=== PATIENT | female | born 1990 | race Caucasian/White ===

== ENCOUNTER 2019-02-05 03:39 | Inpatient (IN) | payer OTHER ==
[~2019-02-05 03:39] MED LIST: Bupivacaine 0.25% 10 ML SDV ONE; ePHEDrine 50 MG/ML SDV ONE
[2019-02-05] MEDS ORDERED: Ondansetron 4 MG/2 ML SDV IVPUSH PRN (04:19)
[2019-02-05] MEDS ORDERED: Calcium Carbonate 500 MG Tab.Chew PO PRN (04:19)
[2019-02-05] MEDS ORDERED: Nalbuphine 10 MG/1 ML Vial IVPUSH PRN (04:19)
[2019-02-05] MEDS ORDERED: Lidocaine 1% 50 ML MDV INJECT ONE (04:19)
[2019-02-05] MEDS ORDERED: Sodium Chloride 0.9% 10 ML Syringe FLUSH PRN (04:19)
[2019-02-05] MEDS ORDERED: Oxytocin/Lactated Ringers 10 UNIT/1,000 ML BAG IV SCH ×2 (04:30→11:15)
[2019-02-05] MEDS: Lactated Ringers 1,000 ML IV SCH ×3 (06:08→08:06)
[2019-02-05] MEDS ORDERED: fentaNYL 100 MCG/2 ML SDV EPIDUR PRN (06:35)
[2019-02-05] MEDS ORDERED: fentaNYL/Bupivacaine/NS 2 MCG-0.125% 250 ML EPIDUR PRN (06:35)
[2019-02-05] MEDS ORDERED: ePHEDrine 50 MG/ML SDV IVPUSH PRN (06:35)
[2019-02-05] MEDS ORDERED: diphenhydrAMINE 50 MG/ML SDV IVPUSH PRN (06:35)
--- NOTE | 2019-02-05 06:36 | PCM.LDHP ---
L&D History of Present Illness - General Date of Service: 02/05/19 Admit Problem/Dx: Patient Status Order with Admit Dx/Problem 02/05/19 03:50 Patient Status [ADT] Routine 02/05/19 04:19 Patient Status [ADT] Routine Admission Diagnosis/Problem Admission Diagnosis/Problem Active labor Source of Information: Patient History Limitations: Reports: No Limitations - History of Present Illness Introduction:: Patient is a 28-year-old at 39 and 07 weeks who presents with SROM and labor. Contractions and rupture happened early this morning. Contractions are moderately painful. 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 Para: 1 LMP (Approximate): Social & Family History - Family History Family Medical History: Noncontributory - Tobacco Use Smoking Status *Q: Former Smoker Years of Tobacco use: 8 Packs/Tins Daily: 0.5 Used Tobacco, but Quit: Yes Month/Year Tobacco Last Used: 01/2018 Second Hand Smoke Exposure: Yes - Alcohol Use Alcohol Use History: No - Recreational Drug Use Recreational Drug Use: No H&P Review of Systems - Review of Systems: Review Of Systems: See Below General: Reports: No Symptoms Pulmonary: Reports: No Symptoms Cardiovascular: Reports: No Symptoms Gastrointestinal: Reports: No Symptoms Genitourinary: Reports: No Symptoms Musculoskeletal: Reports: No Symptoms Psychiatric: Reports: No Symptoms Neurological: Reports: No Symptoms L&D Exam - Exam Exam: See Below - Vital Signs Vital Signs: Last Vital Signs Temp 36.1 C 02/05/19 03:50 Pulse 88 02/05/19 03:50 Resp 16 02/05/19 03:50 BP 120/75 02/05/19 03:50 Pulse Ox 98 02/05/19 03:50 Weight: 76.113 kg - OB Specific Contraction Intensity: Moderate Movement: Active Heart Tones: Present Heart Tones per Min: 140 Heart Rate (FHR) Variability: Moderate (6-25 bmp) Presentation: Vertex - Hansen Score Hansen Score Cervix Position: Midposition Hansen Score Consistency: Soft Hansen Score Effacement: >80% Hansen Score Dilation: > 5 cm Hansen Score Infant's Station: -1 ,0 Hansen Score Total: 11 - Exam General: Alert, Oriented, Cooperative Lungs: Clear to Auscultation, Normal Respiratory Effort Cardiovascular: Regular Rate, Regular Rhythm GI/Abdominal Exam: Soft, Non-Tender Genitourinary: Normal external exam Extremities: Normal Inspection Skin: Warm, Dry, Intact - Patient Data Lab Results Last 24 hrs: Laboratory Results - last 24 hr 02/05/19 02/05/19 Range/Units 04:00 04:35 WBC 13.38 H (3.98-10.04) K/mm3 RBC 3.73 L (3.98-5.22) M/mm3 Hgb 10.5 L (11.2-15.7) gm/dl Hct 32.5 L (34.1-44.9) % MCV 87.1 (79.4-94.8) fl MCH 28.2 (25.6-32.2) pg MCHC 32.3 (32.2-35.5) g/dl RDW Std Deviation 38.9 (36.4-46.3) fL Plt Count 285 (182-369) K/mm3 MPV 9.5 (9.4-12.3) fl Neut % (Auto) 76.3 H (34.0-71.1) % Lymph % (Auto) 13.8 L (19.3-51.7) % [place] % (Auto) 7.5 (4.7-12.5) % Eos % (Auto) 1.2 (0.7-5.8) Baso % (Auto) 0.1 (0.1-1.2) % Neut # (Auto) 10.21 H (1.56-6.13) K/mm3 Lymph # (Auto) 1.84 (1.18-3.74) K/mm3 [place] # (Auto) 1.00 H (0.24-0.36) K/mm3 Eos # (Auto) 0.16 (0.04-0.36) K/mm3 Baso # (Auto) 0.02 (0.01-0.08) K/mm3 Manual Slide Review Normal smear Membrane Rupture Positive H Result Diagrams: 02/05/19 04:35 - Problem List (1) 39 weeks gestation of SNOMED Code(s): 17541373 ICD Code: Z3A.39 - 39 WEEKS GESTATION OF Status: Acute Current Visit: Yes (2) Normal labor SNOMED Code(s): 47280599 ICD Code: O80 - ENCOUNTER FOR FULL-TERM UNCOMPLICATED DELIVERY; Z37.9 - OUTCOME OF DELIVERY, UNSPECIFIED Status: Acute Current Visit: Yes Problem List Initiated/Reviewed/Updated: Yes Orders Last 24hrs: Active Orders 24 hr Category Date Time Status Patient Status [ADT] Routine ADT 02/05/19 04:19 Active Activity as Tolerated [RC] PFP Care 02/05/19 04:19 Active Communication Order [RC] ASDIRECTED Care 02/05/19 04:19 Active Communication Order [RC] ASDIRECTED Care 02/05/19 06:35 Active Cooling Warming Measures [RC] ASDIRECTED Care 02/05/19 06:35 Active Notify Provider [RC] ASDIRECTED Care 02/05/19 06:35 Active Notify Provider [RC] PFP Care 02/05/19 04:19 Active Notify Provider [RC] PRN Care 02/05/19 04:19 Active Oxygen Therapy [RC] ASDIRECTED Care 02/05/19 06:35 Active Peripheral IV Care [RC] Q2HR Care 02/05/19 04:19 Active Pulse Oximetry [RC] ASDIRECTED Care 02/05/19 06:35 Active Pump Management, Intrathecal [RC] ASDIRECTED Care 02/05/19 04:21 Active Urinary Catheter Assessment [RC] ASDIRECTED Care 02/05/19 04:19 Active Vital Signs [RC] Q1H Care 02/05/19 06:35 Active Regular Diet [DIET] Diet 02/05/19 Breakfast Active RAPID PLASMA REAGIN,RPR [CHEM] Stat Lab 02/05/19 04:35 Received TYPE AND SCREEN [BBK] Stat Lab 02/05/19 04:35 Received Bupivicaine/fentaNYL/NS [fentaNYL/Bupivacaine/NS 2 MCG- Med 02/05/19 06:35 Ordered 0.125% 250 ML] 2 mcg EPIDUR CONTINUOUS PRN Calcium Carbonate [Tums] Med 02/05/19 04:19 Active 1,000 mg PO Q2H PRN Lactated Ringers [Ringers, Lactated] 1,000 ml Med 02/05/19 04:30 Active IV ASDIRECTED Nalbuphine [Nubain] Med 02/05/19 04:19 Active 10 mg IVPUSH Q2H PRN Ondansetron [Zofran] Med 02/05/19 04:19 Active 4 mg IVPUSH Q4H PRN Oxytocin/Lactated Ringers [Pitocin in LR 10 Units/1,000 Med 02/05/19 04:30 Active ML] 10 unit in 1,000 ml IV .CONTINUOUS Sodium Chloride 0.9% [Saline Flush] Med 02/05/19 04:19 Active 10 ml FLUSH ASDIRECTED PRN diphenhydrAMINE [Benadryl] Med 02/05/19 06:35 Ordered 25 mg IVPUSH Q6H PRN ePHEDrine [ePHEDrine sulfate] Med 02/05/19 06:35 Ordered 5 mg IVPUSH ASDIRECTED PRN fentaNYL [Sublimaze] Med 02/05/19 06:35 Ordered 100 mcg EPIDUR Q3H PRN Electronic Heart Tones Ext w TOCO [WOMSER] Oth 02/05/19 04:19 Ordered Routine Electronic Heart Tones Internal [WOMSER] Per Unit Oth 02/05/19 04:19 Ordered Routine Peripheral IV Insertion Adult [OM.PC] Routine Oth 02/05/19 04:19 Ordered Resuscitation Status Routine Resus Stat 02/05/19 03:50 Ordered Medication Orders Calcium Carbonate/Glycine (Tums) 1,000 mg PO Q2H PRN PRN Reason: Indigestion Diphenhydramine HCl (Benadryl) 25 mg IVPUSH Q6H PRN PRN Reason: Itching Ephedrine Sulfate (Ephedrine Sulfate) 5 mg IVPUSH ASDIRECTED PRN PRN Reason: HYPOTENTSION Fentanyl (Sublimaze) 100 mcg EPIDUR Q3H PRN PRN Reason: Pain Fentanyl/Bupivacaine HCl (Fentanyl/Bupivacaine/Ns 2 Mcg-0.125% 250 Ml) 2 mcg EPIDUR CONTINUOUS PRN PRN Reason: Pain Lactated Ringer's (Ringers, Lactated) 1,000 mls @ 100 mls/hr IV ASDIRECTED ANGELA Last Admin: 02/05/19 06:08 Dose: 999 mls/hr Oxytocin/Lactated Ringer's (Pitocin In Lr 10 Units/1,000 Ml) 10 unit in 1,000 mls @ 500 mls/hr IV .CONTINUOUS ANGELA Nalbuphine HCl (Nubain) 10 mg IVPUSH Q2H PRN PRN Reason: Pain Ondansetron HCl (Zofran) 4 mg IVPUSH Q4H PRN PRN Reason: Nausea/Vomiting Sodium Chloride (Saline Flush) 10 ml FLUSH ASDIRECTED PRN PRN Reason: Keep Vein Open Assessment/Plan Comment:: * Labs done * GBS negative * Just received epidural for pain control * Anticipate
--- NOTE | 2019-02-05 07:07 | PCM.PREANE ---
Preanesthetic Assessment - Anesthesia/Transfusion/Family Hx Anesthesia History: No Prior Anesthesia Family History of Anesthesia Reaction: No Transfusion History: No Prior Transfusion(s) - Review of Systems General: No Symptoms Pulmonary: No Symptoms Cardiovascular: No Symptoms Gastrointestinal: Abdominal Pain (labor) Neurological: No Symptoms - Physical Assessment Vital Signs: Last Vital Signs Temp 36.1 C 02/05/19 03:50 Pulse 88 02/05/19 03:50 Resp 16 02/05/19 03:50 BP 120/75 02/05/19 03:50 Pulse Ox 98 02/05/19 03:50 Height: 1.6 m Weight: 76.113 kg ASA Class: 2 Mental Status: Alert & Oriented x3 Airway Class: Mallampati = 1 Dentition: Reports: Normal Dentition Thyro-Mental Finger Breadths: 3 Mouth Opening Finger Breadths: 3 ROM/Head Extension: Full Lungs: Clear to Auscultation, Normal Respiratory Effort Cardiovascular: Regular Rate, Regular Rhythm - Lab Values: Laboratory Last Values WBC 13.38 K/mm3 (3.98-10.04) H 02/05/19 04:35 RBC 3.73 M/mm3 (3.98-5.22) L 02/05/19 04:35 Hgb 10.5 gm/dl (11.2-15.7) L 02/05/19 04:35 Hct 32.5 % (34.1-44.9) L 02/05/19 04:35 MCV 87.1 fl (79.4-94.8) 02/05/19 04:35 MCH 28.2 pg (25.6-32.2) 02/05/19 04:35 MCHC 32.3 g/dl (32.2-35.5) 02/05/19 04:35 RDW Std Deviation 38.9 fL (36.4-46.3) 02/05/19 04:35 Plt Count 285 K/mm3 (182-369) 02/05/19 04:35 MPV 9.5 fl (9.4-12.3) 02/05/19 04:35 Neut % (Auto) 76.3 % (34.0-71.1) H 02/05/19 04:35 Lymph % (Auto) 13.8 % (19.3-51.7) L 02/05/19 04:35 [place] % (Auto) 7.5 % (4.7-12.5) 02/05/19 04:35 Eos % (Auto) 1.2 (0.7-5.8) 02/05/19 04:35 Baso % (Auto) 0.1 % (0.1-1.2) 02/05/19 04:35 Neut # (Auto) 10.21 K/mm3 (1.56-6.13) H 02/05/19 04:35 Lymph # (Auto) 1.84 K/mm3 (1.18-3.74) 02/05/19 04:35 [place] # (Auto) 1.00 K/mm3 (0.24-0.36) H 02/05/19 04:35 Eos # (Auto) 0.16 K/mm3 (0.04-0.36) 02/05/19 04:35 Baso # (Auto) 0.02 K/mm3 (0.01-0.08) 02/05/19 04:35 Manual Slide Review Normal smear 02/05/19 04:35 Membrane Rupture Positive H 02/05/19 04:00 Blood Type O POSITIVE 02/05/19 04:35 - Allergies Allergies/Adverse Reactions: Allergies Allergy/AdvReac Type Severity Reaction Status Date / Time No Known Allergies Allergy Verified 02/05/19 04:15 - Anesthesia Plan Pre-Op Medication Ordered: None - Acknowledgements Anesthesia Type Planned: Epidural Pt an Appropriate Candidate for the Planned Anesthesia: Yes Alternatives and Risks of Anesthesia Discussed w Pt/Guardian: Yes Pt/Guardian Understands and Agrees with Anesthesia Plan: Yes PreAnesthesia Questionnaire Gastrointestinal History: Reports: GERD 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 Smoking Status *Q: Former Smoker Tobacco Use Within Last Twelve Months: Cigarettes Second Hand Smoke Exposure: Yes Recreational Drug Use History: No - HOME MEDS Home Medications: Home Meds Pnv No.122/Iron/Folic Acid [ Multi Tablet] 1 each PO DAILY 02/05/19 [ History] - CURRENT (IN HOUSE) MEDS Current Meds: Current Medications Calcium Carbonate/Glycine (Tums) 1,000 mg PO Q2H PRN PRN Reason: Indigestion Diphenhydramine HCl (Benadryl) 25 mg IVPUSH Q6H PRN PRN Reason: Itching Ephedrine Sulfate (Ephedrine Sulfate) 5 mg IVPUSH ASDIRECTED PRN PRN Reason: HYPOTENTSION Fentanyl (Sublimaze) 100 mcg EPIDUR Q3H PRN PRN Reason: Pain Last Admin: 02/05/19 06:44 Dose: 100 mcg Fentanyl/Bupivacaine HCl (Fentanyl/Bupivacaine/Ns 2 Mcg-0.125% 250 Ml) 2 mcg EPIDUR CONTINUOUS PRN PRN Reason: Pain Last Admin: 02/05/19 06:45 Dose: 2 mcg Lactated Ringer's (Ringers, Lactated) 1,000 mls @ 100 mls/hr IV ASDIRECTED ANGELA Last Admin: 02/05/19 06:51 Dose: 999 mls/hr Oxytocin/Lactated Ringer's (Pitocin In Lr 10 Units/1,000 Ml) 10 unit in 1,000 mls @ 500 mls/hr IV .CONTINUOUS ANGELA Nalbuphine HCl (Nubain) 10 mg IVPUSH Q2H PRN PRN Reason: Pain Ondansetron HCl (Zofran) 4 mg IVPUSH Q4H PRN PRN Reason: Nausea/Vomiting Sodium Chloride (Saline Flush) 10 ml FLUSH ASDIRECTED PRN PRN Reason: Keep Vein Open Discontinued Medications Lidocaine HCl (Xylocaine 1%) 20 ml INJECT ONETIME ONE Stop: 02/05/19 04:20
--- NOTE | 2019-02-05 12:20 | PCM.PNLD ---
Labor Progress Note - VS & Meds Vital Signs: Last Vital Signs Temp 36.1 C 02/05/19 03:50 Pulse 88 02/05/19 03:50 Resp 16 02/05/19 03:50 BP 120/75 02/05/19 03:50 Pulse Ox 99 02/05/19 07:30 Active Medications: Current Medications Calcium Carbonate/Glycine (Tums) 1,000 mg PO Q2H PRN PRN Reason: Indigestion Diphenhydramine HCl (Benadryl) 25 mg IVPUSH Q6H PRN PRN Reason: Itching Ephedrine Sulfate (Ephedrine Sulfate) 5 mg IVPUSH ASDIRECTED PRN PRN Reason: HYPOTENTSION Fentanyl (Sublimaze) 100 mcg EPIDUR Q3H PRN PRN Reason: Pain Last Admin: 02/05/19 06:44 Dose: 100 mcg Fentanyl/Bupivacaine HCl (Fentanyl/Bupivacaine/Ns 2 Mcg-0.125% 250 Ml) 2 mcg EPIDUR CONTINUOUS PRN PRN Reason: Pain Last Admin: 02/05/19 06:45 Dose: 2 mcg Lactated Ringer's (Ringers, Lactated) 1,000 mls @ 100 mls/hr IV ASDIRECTED ANGELA Last Admin: 02/05/19 08:06 Dose: 999 mls/hr Oxytocin/Lactated Ringer's (Pitocin In Lr 10 Units/1,000 Ml) 10 unit in 1,000 mls @ 500 mls/hr IV .CONTINUOUS ANGELA Oxytocin/Lactated Ringer's (Pitocin In Lr 10 Units/1,000 Ml) 10 unit in 1,000 mls @ 12 mls/hr IV TITRATE ANGELA; Protocol Last Admin: 02/05/19 11:18 Dose: 2 munits/min, 12 mls/hr Nalbuphine HCl (Nubain) 10 mg IVPUSH Q2H PRN PRN Reason: Pain Ondansetron HCl (Zofran) 4 mg IVPUSH Q4H PRN PRN Reason: Nausea/Vomiting Sodium Chloride (Saline Flush) 10 ml FLUSH ASDIRECTED PRN PRN Reason: Keep Vein Open Discontinued Medications Lidocaine HCl (Xylocaine 1%) 20 ml INJECT ONETIME ONE Stop: 02/05/19 04:20 - Uterine Contractions Uterine Monitoring Mode: External [place] Contraction Intensity: Moderate - Monitoring Monitor Mode: External Ultrasound Heart Rate (FHR) Baseline: 140 Heart Rate (FHR) Variability: Moderate (6-25 bmp) Accelerations: Present, 15x15 Decelerations: None Strip Review: Category I - Vaginal Exam Dilation (cm): 8 Effacement (Percent): 80 Station: 0 Cervical Position: Anterior - Labor Progress (Free Text) Labor Progress: Doing well. Contractions had spaced out. Was started on pitocin around 1100. Feeling comfortable otherwise
--- NOTE | 2019-02-05 15:58 | PCM.DEL ---
L & D Note - General Info Date of Service: 02/05/19 - Delivery Note Labor: Augmented by Oxytocin Delivery Outcome: Livebirth Delivery Method: Spontaneous Vaginal Delivery-Single Delivery Mode: Spontaneous Presentation: Right Occiput Anterior (TWILA) Nuchal Cord: None Anesthesia Type: Epidural Amniotic Fluid Description: Clear Episiotomy Type: None Laceration: None Placenta: Intact, Spontaneous Cord: 3 Vessels Estimated Blood Loss: 100 Resuscitation Needed: Yes : Bulb Syringe, Stimulated, Warmed, [place] Used Delivery Comments (Free Text/Narrative):: Patient found to be complete and began pushing. With maternal pushing effort head delivered from an TWILA presentation. No nuchal cord present. With gentle downward traction s the shoulders and body delivered. Infant placed on maternal abdomen. Cord clamped and cut. Cord blood collected. Placenta allowed time to separate and expelled intact. Inspection of the perineum showed no lacerations - General Info Date of Service: 02/05/19 - Patient Data Vitals - Most Recent: Last Vital Signs Temp 36.1 C 02/05/19 03:50 Pulse 88 02/05/19 03:50 Resp 16 02/05/19 03:50 BP 120/75 02/05/19 03:50 Pulse Ox 99 02/05/19 07:30 Weight - Most Recent: 76.113 kg I&O - Last 24 Hours: Intake & Output 02/05/19 02/05/19 02/05/19 06:59 14:59 22:59 Intake Total 3000 Output Total 500 Balance 2500 Lab Results Last 24 Hours: Laboratory Results - last 24 hr 02/05/19 02/05/19 02/05/19 Range/Units 04:00 04:35 04:35 WBC 13.38 H (3.98-10.04) K/mm3 RBC 3.73 L (3.98-5.22) M/mm3 Hgb 10.5 L (11.2-15.7) gm/dl Hct 32.5 L (34.1-44.9) % MCV 87.1 (79.4-94.8) fl MCH 28.2 (25.6-32.2) pg MCHC 32.3 (32.2-35.5) g/dl RDW Std Deviation 38.9 (36.4-46.3) fL Plt Count 285 (182-369) K/mm3 MPV 9.5 (9.4-12.3) fl Neut % (Auto) 76.3 H (34.0-71.1) % Lymph % (Auto) 13.8 L (19.3-51.7) % [place] % (Auto) 7.5 (4.7-12.5) % Eos % (Auto) 1.2 (0.7-5.8) Baso % (Auto) 0.1 (0.1-1.2) % Neut # (Auto) 10.21 H (1.56-6.13) K/mm3 Lymph # (Auto) 1.84 (1.18-3.74) K/mm3 [place] # (Auto) 1.00 H (0.24-0.36) K/mm3 Eos # (Auto) 0.16 (0.04-0.36) K/mm3 Baso # (Auto) 0.02 (0.01-0.08) K/mm3 Manual Slide Review Normal smear Membrane Rupture Positive H Blood Type O POSITIVE Gel Antibody Screen Negative Med Orders - Current: Current Medications Calcium Carbonate/Glycine (Tums) 1,000 mg PO Q2H PRN PRN Reason: Indigestion Diphenhydramine HCl (Benadryl) 25 mg IVPUSH Q6H PRN PRN Reason: Itching Ephedrine Sulfate (Ephedrine Sulfate) 5 mg IVPUSH ASDIRECTED PRN PRN Reason: HYPOTENTSION Fentanyl (Sublimaze) 100 mcg EPIDUR Q3H PRN PRN Reason: Pain Last Admin: 02/05/19 06:44 Dose: 100 mcg Fentanyl/Bupivacaine HCl (Fentanyl/Bupivacaine/Ns 2 Mcg-0.125% 250 Ml) 2 mcg EPIDUR CONTINUOUS PRN PRN Reason: Pain Last Admin: 02/05/19 06:45 Dose: 2 mcg Lactated Ringer's (Ringers, Lactated) 1,000 mls @ 100 mls/hr IV ASDIRECTED ANGELA Last Admin: 02/05/19 08:06 Dose: 999 mls/hr Oxytocin/Lactated Ringer's (Pitocin In Lr 10 Units/1,000 Ml) 10 unit in 1,000 mls @ 500 mls/hr IV .CONTINUOUS ANGELA Oxytocin/Lactated Ringer's (Pitocin In Lr 10 Units/1,000 Ml) 10 unit in 1,000 mls @ 12 mls/hr IV TITRATE ANGELA; Protocol Last Admin: 02/05/19 11:18 Dose: 2 munits/min, 12 mls/hr Nalbuphine HCl (Nubain) 10 mg IVPUSH Q2H PRN PRN Reason: Pain Ondansetron HCl (Zofran) 4 mg IVPUSH Q4H PRN PRN Reason: Nausea/Vomiting Sodium Chloride (Saline Flush) 10 ml FLUSH ASDIRECTED PRN PRN Reason: Keep Vein Open Discontinued Medications Lidocaine HCl (Xylocaine 1%) 20 ml INJECT ONETIME ONE Stop: 02/05/19 04:20 - Problem List & Annotations (1) 39 weeks gestation of SNOMED Code(s): 71500940 Code(s): Z3A.39 - 39 WEEKS GESTATION OF Status: Acute Current Visit: Yes (2) Normal labor SNOMED Code(s): 07907871 Code(s): O80 - ENCOUNTER FOR FULL-TERM UNCOMPLICATED DELIVERY; Z37.9 - OUTCOME OF DELIVERY, UNSPECIFIED Status: Acute Current Visit: Yes - Problem List Review Problem List Initiated/Reviewed/Updated: Yes - My Orders Last 24 Hours: My Active Orders 02/05/19 03:50 Resuscitation Status Routine 02/05/19 04:19 Patient Status [ADT] Routine Activity as Tolerated [RC] PFP Communication Order [RC] ASDIRECTED Notify Provider [RC] PFP Notify Provider [RC] PRN Peripheral IV Care [RC] Q2HR Urinary Catheter Assessment [RC] ASDIRECTED Calcium Carbonate [Tums] 1,000 mg PO Q2H PRN Nalbuphine [Nubain] 10 mg IVPUSH Q2H PRN Ondansetron [Zofran] 4 mg IVPUSH Q4H PRN Sodium Chloride 0.9% [Saline Flush] 10 ml FLUSH ASDIRECTED PRN Electronic Heart Tones Ext w TOCO [WOMSER] Routine Electronic Heart Tones Internal [WOMSER] Per Unit Routine Peripheral IV Insertion Adult [OM.PC] Routine 02/05/19 04:21 Pump Management, Intrathecal [RC] ASDIRECTED 02/05/19 04:30 Lactated Ringers [Ringers, Lactated] 1,000 ml IV ASDIRECTED Oxytocin/Lactated Ringers [Pitocin in LR 10 Units/1,000 ML] 10 unit in 1,000 ml IV .CONTINUOUS 02/05/19 04:35 RAPID PLASMA REAGIN,RPR [CHEM] Stat 02/05/19 11:15 Oxytocin/Lactated Ringers [Pitocin in LR 10 Units/1,000 ML] 10 unit in 1,000 ml IV TITRATE 02/05/19 15:52 Patient Status Manage Transfer [TRANSFER] Routine 02/05/19 Breakfast Regular Diet [DIET] - Assessment Assessment:: 28 y/o G2 now P2 PPD#0 from at 39 0/7 wks after SROM / labor - Plan Plan:: * Routine cares * Encourage breast feeding * Discharge home in 1-2 days
[2019-02-05] MEDS ORDERED: Ibuprofen 600 MG Tab PO PRN (15:59)
[2019-02-05] MEDS ORDERED: Witch Hazel Medicated Pads 40/Jar TOP PRN (15:59)
[2019-02-05] MEDS ORDERED: Benzocaine/Menthol 20%-0.5% Spray 56 GM Canister TOP PRN (15:59)
[2019-02-05] MEDS ORDERED: Acetaminophen 325 MG Tab PO PRN (15:59)
[2019-02-05] MEDS ORDERED: Docusate Sodium 100 MG Cap PO PRN (15:59)
--- NOTE | 2019-02-06 06:48 | PCM.DCSUM1 ---
Discharge Summary - Hospital Course Diagnosis: Stroke: No - Discharge Data Discharge Date: 02/06/19 Discharge Disposition: Home, Self-Care 01 Condition: Good - Referral to Home Health Primary Care Physician: Lauren Polo MD - Patient Instructions Diet: Usual Diet as Tolerated Driving: May Drive Today Notify Provider of: Fever, Increased Pain, Swelling and Redness, Drainage - Discharge Plan *PRESCRIPTION DRUG MONITORING PROGRAM REVIEWED*: No *COPY OF PRESCRIPTION DRUG MONITORING REPORT IN PATIENT MYLA: No Home Medications: Home Meds Pnv No.122/Iron/Folic Acid [ Multi Tablet] 1 each PO DAILY 02/05/19 [ History] Referrals: Lauren Polo MD [Primary Care Provider] - - Discharge Summary/Plan Comment DC Time >30 min.: No - General Info Functional Status: Reports: Pain Controlled - Review of Systems General: Reports: No Symptoms HEENT: Reports: No Symptoms Pulmonary: Reports: No Symptoms Cardiovascular: Reports: No Symptoms Gastrointestinal: Reports: No Symptoms Genitourinary: Reports: No Symptoms Musculoskeletal: Reports: No Symptoms Skin: Reports: No Symptoms Neurological: Reports: No Symptoms Psychiatric: Reports: No Symptoms - Patient Data Vitals - Most Recent: Last Vital Signs Temp 36.8 C 02/06/19 02:42 Pulse 81 02/06/19 02:42 Resp 15 02/06/19 02:42 BP 109/58 L 02/06/19 02:42 Pulse Ox 98 02/06/19 02:42 Weight - Most Recent: 76.113 kg I&O - Last 24 hours: Intake & Output 02/05/19 02/05/19 02/06/19 14:59 22:59 06:59 Intake Total 3000 1000 Output Total 1300 Balance 1700 1000 Lab Results - Last 24 hrs: Laboratory Results - last 24 hr 02/05/19 02/05/19 Range/Units 04:35 04:35 RPR Non-reactive (NONREACTIVE) Blood Type O POSITIVE Gel Antibody Screen Negative Med Orders - Current: Current Medications Acetaminophen (Tylenol) 650 mg PO Q4H PRN PRN Reason: mild pain or fever Benzocaine/Menthol (Dermoplast Pain Relief [place]) 0 gm TOP ASDIRECTED PRN PRN Reason: Perineal Comfort Measure Docusate Sodium (Colace) 100 mg PO BID PRN PRN Reason: Constipation Ibuprofen (Motrin) 600 mg PO Q6H PRN PRN Reason: Mild pain or fever [place] (Tucks) 1 pad TOP ASDIRECTED PRN PRN Reason: Perineal Comfort Measure Discontinued Medications Calcium Carbonate/Glycine (Tums) 1,000 mg PO Q2H PRN PRN Reason: Indigestion Diphenhydramine HCl (Benadryl) 25 mg IVPUSH Q6H PRN PRN Reason: Itching Ephedrine Sulfate (Ephedrine Sulfate) 5 mg IVPUSH ASDIRECTED PRN PRN Reason: HYPOTENTSION Fentanyl (Sublimaze) 100 mcg EPIDUR Q3H PRN PRN Reason: Pain Last Admin: 02/05/19 06:44 Dose: 100 mcg Fentanyl/Bupivacaine HCl (Fentanyl/Bupivacaine/Ns 2 Mcg-0.125% 250 Ml) 2 mcg EPIDUR CONTINUOUS PRN PRN Reason: Pain Last Admin: 02/05/19 06:45 Dose: 2 mcg Lactated Ringer's (Ringers, Lactated) 1,000 mls @ 100 mls/hr IV ASDIRECTED ANGELA Last Admin: 02/05/19 08:06 Dose: 999 mls/hr Oxytocin/Lactated Ringer's (Pitocin In Lr 10 Units/1,000 Ml) 10 unit in 1,000 mls @ 500 mls/hr IV .CONTINUOUS ANGELA Oxytocin/Lactated Ringer's (Pitocin In Lr 10 Units/1,000 Ml) 10 unit in 1,000 mls @ 12 mls/hr IV TITRATE ANGELA; Protocol Last Admin: 02/05/19 11:18 Dose: 2 munits/min, 12 mls/hr Lidocaine HCl (Xylocaine 1%) 20 ml INJECT ONETIME ONE Stop: 02/05/19 04:20 Last Admin: 02/05/19 18:47 Dose: Not Given Nalbuphine HCl (Nubain) 10 mg IVPUSH Q2H PRN PRN Reason: Pain Ondansetron HCl (Zofran) 4 mg IVPUSH Q4H PRN PRN Reason: Nausea/Vomiting Sodium Chloride (Saline Flush) 10 ml FLUSH ASDIRECTED PRN PRN Reason: Keep Vein Open - Exam General: Reports: Alert, Oriented HEENT: Reports: Pupils Equal, Pupils Reactive, EOMI, Mucous Membr. Moist/[place] Neck: Reports: Supple Lungs: Reports: Clear to Auscultation, Normal Respiratory Effort Cardiovascular: Reports: Regular Rate, Regular Rhythm GI/Abdominal Exam: Normal Bowel Sounds, Soft, Non-Tender, No Organomegaly, No Distention, No Abnormal Bruit, No Mass, Pelvis Stable Rectal (Female) Exam: Normal Exam, Normal Rectal Tone Back Exam: Reports: Normal Inspection, Full Range of Motion Extremities: Normal Inspection, Normal Range of Motion, Non-Tender, No Pedal Edema, Normal Capillary Refill Skin: Reports: Warm, Dry, Intact Wound/Incisions: Reports: Healing Well Neurological: Reports: No New Focal Deficit Psy/Mental Status: Reports: Alert, Normal Affect, Normal Mood
--- NOTE | 2019-02-06 09:15 | PCM48HPAN ---
Post Anesthesia Note - EVALUATION WITHIN 48HRS OF ANESTHETIC Vital Signs in Normal Range: Yes Patient Participated in Evaluation: Yes Respiratory Function Stable: Yes Airway Patent: Yes Cardiovascular Function Stable: Yes Hydration Status Stable: Yes Pain Control Satisfactory: Yes Nausea and Vomiting Control Satisfactory: Yes Mental Status Recovered: Yes Vital Signs: Last Vital Signs Temp 98.2 F 02/06/19 02:42 Pulse 81 02/06/19 02:42 Resp 15 02/06/19 02:42 BP 109/58 L 02/06/19 02:42 Pulse Ox 98 02/06/19 02:42
== END 2019-02-06 16:58 | disposition home or self-care (01) | DRG 807 ==
LOC: JD.OB 03:39 → JD.OBCHECK 03:39 → JD.OB 04:19 → OBSVTOIN 15:40 → JD.OB 15:41
PROVIDERS: ADMIT Obstetrics & Gynecology; ATTEND Obstetrics & Gynecology
PROC: 10E0XZZ Delivery of Products of Conception, External Approach (ICD-10-PCS; principal; 2019-02-05)
DX: O80 Encounter for full-term uncomplicated delivery (principal); Z37.0 Single live birth; Z87.891 Personal history of nicotine dependence; Z3A.39 39 weeks gestation of pregnancy
CPT/HCPCS: 36415; 51702; 59025; 59409; 84112; 85025; 86592; 86850; 86900; 86901; J2590; J3010; J3490; J7120